=== PATIENT | female | born 1985 | race African-American/Black ===

== ENCOUNTER 2024-08-24 12:08 | Emergency (ER) | payer OTHER ==
[~2024-08-24] VITALS: Ht 170.2 cm; Wt 68.0 kg
[~2024-08-24 12:08] MED LIST: ALPR2TAB2 PO; KEPP500 PO; PHEN100C4 PO; QUET100T PO; TRAM50TA3 PO; Tramadol Hcl PO
[2024-08-24 12:09] VITALS: O2SAT 97
[2024-08-24] MEDS: ONDANSETRON HCL 4MG/2ML INJ IV STA (12:44)
[2024-08-24] MEDS: SODIUM CHLORIDE 0.9% 1,000 ML IV ONE (12:45)
[2024-08-24] MEDS: LEVETIRACETAM 1000MG PREMIX 100 ML IV ONE (12:45)
[2024-08-24] MEDS: KETOROLAC 30MG/ML VIAL IV STA (13:22)
[2024-08-24 14:50] LABS: CLARITY URINE CLEAR (CLEAR); COLOR URINE YELLOW (YELLOW); GLUCOSE URINE NEGATIVE (NEGATIVE); KETONES URINE 1+ (NEGATIVE); LEUKOCYTE ESTERASE URINE NEGATIVE (NEGATIVE); NITRITE URINE NEGATIVE (NEGATIVE); OCCULT BLOOD URINE NEGATIVE (NEGATIVE); PH URINE 6.5 (4.5-8.0); PROTEIN URINE 1+ (NEGATIVE); SPECIFIC GRAVITY URINE 1.024 (1.005-1.030)
[2024-08-24 15:02] LABS: BACTERIA URINE NONE SEEN; RBC URINE 0-2 /hpf (0-2); SQUAMOUS EPITHELIAL CELL URINE 2+ /lpf (RARE/1+); WBC URINE 0-2 /hpf (0-2); YEAST URINE NONE SEEN
[2024-08-24 15:09] LABS: *AMPHETAMINES SCREEN URINE PRESUMPTIVE POSITIVE (NEGATIVE); *BARBITURATES SCREEN URINE NEGATIVE (NEGATIVE); *BENZODIAZEPINES SCREEN URINE NEGATIVE (NEGATIVE); *COCAINE SCREEN URINE NEGATIVE (NEGATIVE); CANNABINOID URINE SCREEN NEGATIVE (NEGATIVE); ECSTASY MDMA SCREEN URINE NEGATIVE (NEGATIVE); METHADONE URINE SCREEN NEGATIVE (NEGATIVE); OPIATES URINE SCREEN NEGATIVE (NEGATIVE); PHENCYCLIDINE URINE SCREEN NEGATIVE (NEGATIVE)
[2024-08-24 15:10] LABS: BASOPHILS % 0.3 % (0.0-2.0); EOSINOPHILS % 0.1 % (0.0-5.0); HEMATOCRIT. 39.6 % (36.0-48.0); HEMOGLOBIN. 12.7 g/dL (12.0-16.0); LYMPHOCYTES % 16.4 % (20.0-50.0); MEAN CORPUSCULAR HEMOGLOBIN 26.3 pg (28.0-32.0); MEAN CORPUSCULAR HGB CONC 32.1 g/dL (31.0-37.0); MEAN CORPUSCULAR VOLUME 82.1 fL (81.0-99.0); MEAN PLATELET VOLUME 7.2 fl (7.4-10.4); MONOCYTES % 3.4 % (2.0-8.0); NEUTROPHILS % 79.8 % (40.0-76.0); PLATELET 413 x1000/uL (130-400); RED BLOOD CELL COUNT 4.83 mill/uL (4.2-5.4); RED CELL DISTRIBUTION WIDTH 14.6 % (11.6-14.6); WHITE BLOOD COUNT 9.8 x1000/uL (4.5-11.0)
[2024-08-24 15:13] LABS: CHLORIDE 105 mEq/L (98-107); POTASSIUM 3.6 mEq/L (3.5-5.1); SODIUM 139 mEq/L (136-145)
[2024-08-24 15:14] LABS: CALCIUM 9.4 mg/dL (8.7-10.4); CARBON DIOXIDE 25 mEq/L (21-32)
[2024-08-24 15:18] LABS: PROTHROMBIN TIME 10.7 sec (9.6-11.0)
[2024-08-24 15:19] LABS: CREATININE 0.8 mg/dL (0.6-1.0); GLUCOSE 77 mg/dL (70-105)
[2024-08-24 15:20] LABS: UREA NITROGEN BLOOD 11 mg/dL (9-23)
[2024-08-24 15:31] LABS: ETHANOL BLOOD < 10 mg/dL (<10)
[2024-08-24 15:37] LABS: HCG SCREEN NEGATIVE
[2024-08-24] MEDS ORDERED: MORPHINE SULFATE 4 MG/ML INJ (FOR IV/IM USE) IV NR (16:00)
[2024-08-24] MEDS: ACETAMINOPHEN 325MG TABLET PO ONE (16:12)
[2024-08-24 16:17] VITALS: BP 139/95; PULSE 89; RESP 13; TEMP 37.00296; O2SAT 100
== END 2024-08-24 16:20 | disposition home or self-care (01) ==
LOC: ER 12:08
DX: G40.409 Other generalized epilepsy and epileptic syndromes, not intractable, without status epilepticus (principal); I10 Essential (primary) hypertension; Z79.899 Other long term (current) drug therapy; Z90.49 Acquired absence of other specified parts of digestive tract
CPT/HCPCS: 80305; 80048; 81003; 80320; 84703; 85025; 85610; 36415; 96365; 96366; 96375; 99284; J1953; J1885; J2405; J7030; G0480